=== PATIENT | female | born 1975 | race Caucasian/White ===

== ENCOUNTER 2016-11-01 17:06 | Emergency (ER) | payer OTHER ==
[~2016-11-01] VITALS: Wt 65.0 kg
[2016-11-01] MEDS ORDERED: morphine 2 MG INJ IV STA (20:12)
[2016-11-01] MEDS ORDERED: SOD CHLORIDE 0.9% 1,000 ML IV STA ×2 (20:12→22:58)
[2016-11-01] MEDS ORDERED: ONDANSETRON 4 MG INJ IV STA (20:12)
--- NOTE | 2016-11-01 20:29 | ERD ---
ER Documentation Chief Complaint Date/Time DATE: 11/01/16 TIME: 20:23 Chief Complaint VOMITING AND DIARRHEA AND MILD ABD PAIN SINCE LAST NIGHT. NO DYSURIA HPI 41-year-old female presents with chief complaint of vomiting and abdominal pain since last night. Associated symptoms include diarrhea, headache, fever, and chills. She states that the pain is in the suprapubic area right lower quadrant. Currently rates her pain a 7 out of 10 in severity. He took Pepto- Bismol last night without relief. She denies history of abdominal surgeries. ROS All systems reviewed and are negative except as per history of present illness. Medications Home Meds Active Scripts Acetaminophen* (Tylenol*) 325 Mg Tablet, 2 TAB PO Q6 Y for PAIN AND OR ELEVATED TEMP, #20 TAB Prov:Veronica Merritt PA-C 11/01/16 Ondansetron (Ondansetron Odt) 4 Mg Tab.rapdis, 4 MG PO Q6H Y for NAUSEA AND/OR VOMITING, #10 TAB Prov:Veronica Merritt PA-C 11/01/16 PMhx/Soc Medical and Surgical Hx: pt denies Medical Hx, pt denies Surgical Hx Hx Alcohol Use: No Hx Substance Use: No Hx Tobacco Use: No Smoking Status: Never smoker Physical Exam Vitals Vital Signs Date Time Temp Pulse Resp B/P Pulse Ox O2 Delivery O2 Flow Rate FiO2 11/02/16 00:08 96/67 11/01/16 23:01 98.4 86 18 96/55 99 Room Air 11/01/16 17:45 102.4 127 21 135/75 98 Physical Exam GENERAL: Non-toxic. No apparent signs of distress. HEENT: Atraumatic. Bilateral eyes are PERRL EOM intact. Normal conjunctiva, no injection. No eyelid or lower eyelid swelling noted. Ears: Normal tympanic membrane, no erythema or bulging. No ear canal swelling. No ear discharge. Nose : no nasal discharge. Throat: Oropharynx normal. Tongue pink and moist. No tonsillar swelling or tonsillar exudates. No lymphadenopathy. LUNGS: Clear to auscultation. No accessory muscle use. No wheezing, no crackles. No signs or symptoms of respiratory distress. HEART: Regular rate and rhythm. No murmurs, clicks, rubs or gallops. ABDOMEN: Soft and nondistended. Bowel sounds positive. No rebound or guarding. No gross peritoneal signs. Tenderness to palpation of the suprapubic and right lower quadrant. No gross masses. BACK: No midline tenderness, no costovertebral tenderness. NEURO: Normal mental status for age. Good muscle tone. SKIN: There is no apparent rash, petechiae, erythema or swelling. Good skin turgor. Result Diagram: 11/01/16203911/01/162039 Results 24 hrs Laboratory Tests Test 11/01/16 20:40 Alanine Aminotransferase (ALT/SGPT) 50IU/L Albumin 3.9g/dl Albumin/Globulin Ratio 1.21 Alkaline Phosphatase 64IU/L Anion Gap 17 Aspartate Amino Transf (AST/SGOT) 46IU/L Band Neutrophils % 1.0% Blood Urea Nitrogen 7mg/dl Calcium Level 8.4mg/dl Carbon Dioxide Level 24mmol/L Chloride Level 103mmol/L Creatinine 0.83mg/dl Direct Bilirubin 0.00mg/dl Globulin 3.20g/dl Glucose Level 105mg/dl Hematocrit 36.3% Hemoglobin 12.3g/dl Indirect Bilirubin 1.1mg/dl Lipase 25U/L Lymphocytes # 0.510^3/ul Lymphocytes % 6.0% Mean Corpuscular Hemoglobin 31.9pg Mean Corpuscular Hemoglobin Concent 33.9g/dl Mean Corpuscular Volume 94.3fl Mean Platelet Volume 9.3fl Monocytes # 0.510^3/ul Monocytes % 6.0% Neutrophils # 7.710^3/ul Neutrophils % 87.0% Platelet Count 54764^3/UL Potassium Level 3.8mmol/L Red Blood Count 3.8510^6/ul Red Cell Distribution Width 11.9% Sodium Level 140mmol/L Total Bilirubin 1.1mg/dl Total Protein 7.1g/dl Urine Bilirubin NEGATIVE Urine Clarity CLEAR Urine Color LT. YELLOW Urine Glucose NEGATIVE% Urine Hemoglobin NEGATIVE Urine Ketones NEGATIVE Urine Leukocyte Esterase NEGATIVE Urine Nitrite NEGATIVE Urine Specific [place] <=1.005 Urine Total Protein NEGATIVE Urine Urobilinogen 0.2 E.U./dL Urine pH 5.5 White Blood Count 8.910^3/ul Current Medications Medications (Trade) Dose Ordered Sig/Luis F Route PRN Reason Start Time Stop Time Status Last Admin Dose Admin Sodium Chloride (NS) 1,000 ml @ 1,000 mls/hr Q1H STAT IV 11/01/16 20:12 11/01/16 21:11 DC 11/01/16 20:42 Morphine Sulfate (morphine) 2 mg ONCE STAT IV 11/01/16 20:12 11/01/16 20:15 DC 11/01/16 20:41 Ondansetron HCl (Zofran Inj) 4 mg ONCE STAT IV 11/01/16 20:12 11/01/16 20:15 DC 11/01/16 20:41 Acetaminophen (Tylenol Tab) 650 mg ONCE ONCE PO 11/01/16 20:30 11/01/16 20:31 DC 11/01/16 20:41 IV Flush 10 ml 10 ml STK-MED ONCE .ROUTE 11/01/16 21:21 11/01/16 21:22 DC 11/01/16 21:36 Sodium Chloride (NS) 100 ml @ ud STK-MED ONCE .ROUTE 11/01/16 21:21 11/01/16 21:22 DC 11/01/16 21:36 Iohexol 150 ml 150 ml STK-MED ONCE .ROUTE 11/01/16 21:21 11/01/16 21:22 DC 11/01/16 21:36 Sodium Chloride (NS) 1,000 ml @ 1,000 mls/hr Q1H STAT IV 11/01/16 22:58 11/01/16 23:57 DC 11/01/16 23:01 Procedures/MDM Patient stated her complaint was vomiting and abdominal pain since last night. On exam she had tenderness to palpation of the suprapubic area and right lower quadrant. I explained that would be ordering an influenza swab as this could be possible cause of fever. We will be ordering basic lab work in addition to abdominal CT due to patient's right lower quadrant tenderness on exam and fever. CBC: No leukocytosis or anemia CMP: No electrolyte imbalances or signs severe dehydration, normal kidney function Lipase: Within normal limits POC : Negative UA: No leukocyte Estrace or nitrites, UTI unlikely Influenza a and B swab: Negative Abdominal CT with contrast: 1. Mild diffuse fatty infiltration of the liver. 2. Mildly dilated fluid-filled loops of small bowel with fluid within the proximal colon without obstruction. This is suggestive of an enteritis. 3. No CT evidence for appendicitis. 4. Minimal pelvic free fluid. I explained the results of the workup with the patient. Severe infection is unlikely due to no leukocytosis or neutrophilia. There are no severe electrolyte imbalances, patient received 2 L of IV fluids for hydration. CT of abdomen revealed no signs of appendicitis. It did show signs suggestive of enteritis. Patient's symptoms are likely due to viral gastroenteritis, duration of symptoms of only been for 2 days. Therefore I do not feel that antibiotic treatment is necessary at this time. Strict return precautions were discussed. At this time a low suspicion for appendicitis, pancreatitis, cholecystitis, choledocholithiasis, diverticulitis, ovarian torsion or cyst, bowel obstruction/ perforation, and sepsis. Patient was given morphine, 2 L of IV fluids, and Tylenol in the ER. She reported relief of her symptoms after treatment. She was mildly hypotensive at time of discharge, patient was given a second liter of IV fluids. After which her blood pressure increased slightly. She was in no acute distress and stated that she felt well. At this time she is stable for discharge and outpatient management. Advised to follow-up with PCP in 1-2 days. Departure Diagnosis: Primary Impression: Nausea, vomiting, and diarrhea Additional Impression: Gastroenteritis Condition: Good Veronica Merritt PA-C Nov 01, 2016 20:29
[2016-11-01] MEDS ORDERED: ACETAMINOPHEN 325 MG TAB PO ONE (20:30)
[2016-11-01 20:56] LABS: ADD SCAN DIFF NO
[2016-11-01 20:58] LABS: ABNORMAL IP MESSAGE 1; HEMATOCRIT 36.3 % (37.0-47.0); HEMOGLOBIN 12.3 g/dl (12.0-16.0); MEAN CORPUSCULAR HEMOGLOBIN 31.9 pg (29.0-33.0); MEAN CORPUSCULAR HGB CONC 33.9 g/dl (32.0-37.0); MEAN CORPUSCULAR VOLUME 94.3 fl (82.0-101.0); MEAN PLATELET VOLUME 9.3 fl (7.4-10.4); PLATELET COUNT 269 10^3/UL (140-415); RED BLOOD COUNT 3.85 10^6/ul (4.20-5.40); RED CELL DISTRIBUTION WIDTH 11.9 % (11.5-14.5); WHITE BLOOD COUNT 8.9 10^3/ul (4.8-10.8)
[2016-11-01 21:04] LABS: ADD UMIC NO; URINE BILIRUBIN (Dip) NEGATIVE (NEGATIVE); URINE BLOOD (Dip) NEGATIVE (NEGATIVE); URINE COLOR LT. YELLOW (YELLOW); URINE GLUCOSE (Dip) NEGATIVE (NEGATIVE); URINE KETONES (Dip) NEGATIVE (NEGATIVE); URINE LEUKOCYTE ESTERASE (Dip) NEGATIVE (NEGATIVE); URINE NITRITE (Dip) NEGATIVE (NEGATIVE); URINE TOTAL PROTEIN (Dip) NEGATIVE (NEGATIVE); URINE UROBILINOGEN (Dip) 0.2 E.U./dL (0.1-1.0)
[2016-11-01 21:11] LABS: ALBUMIN 3.9 g/dl (3.3-4.9); POTASSIUM 3.8 mmol/L (3.5-5.1)
[2016-11-01 21:13] LABS: BILIRUBIN,INDIRECT 1.1 mg/dl (0-1.1); BILIRUBIN,TOTAL 1.1 mg/dl (0.2-1.3); CREATININE 0.83 mg/dl (0.44-1.00)
[2016-11-01 21:14] LABS: ALBUMIN/GLOBULIN RATIO 1.21; CALCIUM 8.4 mg/dl (8.4-10.2); TOTAL PROTEIN 7.1 g/dl (6.1-8.1)
[2016-11-01] MEDS ORDERED: SOD CHLORIDE 0.9% 100 ML ONE (21:21)
[2016-11-01] MEDS ORDERED: IOHEXOL 300MG/ML 150 ML BTL ONE (21:21)
[2016-11-01 22:02] LABS: LYMPHOCYTES # 0.5 10^3/ul (0.8-2.9); MONOCYTE # 0.5 10^3/ul (0.3-0.9); NEUTROPHIL # 7.7 10^3/ul (1.6-7.5)
--- NOTE | 2016-11-01 22:40 | RADRPT ---
PROCEDURE: CT ABDOMEN/PELVIS WITH CONTRAST CLINICAL INDICATION: 41-year-old female with abdominal pain, diarrhea, vomiting and febrile. TECHNIQUE: The study was performed utilizing a GE [employer] Advanced [employer] VCT 64-slice CT scanner. Direct axia l sections were obtained through the abdomen and pelvis with the use of 90 cc of Omnipaque-300 nonio karely intravenous contrast material. Sagittal and coronal reformations were obtained. One or more of t he following dose reduction techniques were utilized: automated exposure control, adjustment of the mA and/or kV according to patient's size or use of iterative reconstruction technique. The images w ere reviewed on a PACS workstation. CTD/vol = 7.5 mGy; Total Exam DLP = 169.5 mGy-cm. COMPARISON: None. FINDINGS: There is trace bibasilar subsegmental atelectasis.. There is no evidence for significant pleural ef fusion. The liver has a normal size and contour. There is mild diffuse decreased density throughou t the liver suggestive of fatty infiltration but without focal areas of abnormal density or contrast enhancement. No intrahepatic nor extrahepatic biliary ductal dilatation is seen. The gallbladder de monstrates no wall thickening nor pericholecystic fluid. No biliary stones are evident. The pancreas is without areas of abnormal attenuation or contrast enhancement. This spleen is identified and latham s a normal size without abnormal density or contrast enhancement. The adrenal glands are unremarkabl e. The kidneys are functional bilaterally without abnormal density. No hydroureteronephrosis nor nep hroureterolithiasis is evident. The urinary bladder contains urine. There are mildly dilated fluid-f illed loops of distal small bowel with fluid identified within the proximal colon without evidence for transition point to suggest an obstruction. There is a small solitary diverticula within the as cending colon without surrounding inflammatory changes. The appendix is visualized and is without s ignificant edema or surrounding inflammatory changes. The uterus is unremarkable. There is minimal pelvic free fluid. There is no significant free fluid. The aortoiliac vessels are without aneurys mal dilatation. The osseous structures are intact. IMPRESSION: 1. Mild diffuse fatty infiltration of the liver. 2. Mildly dilated fluid-filled loops of small bowel with fluid within the proximal colon without ob struction. This is suggestive of an enteritis. 3. No CT evidence for appendicitis. 4. Minimal pelvic free fluid. .Jim Claros MD, MD Date Time Electronically viewed and signed by .Jim Claros MD, MD on 11/01/2016 22:40 ./
[2016-11-01] MEDS ORDERED: ONDA4TAB14 PO (22:50)
[2016-11-01] MEDS ORDERED: ACET325T33 PO (22:50)
[2016-11-01 23:01] VITALS: PULSE 86; RESP 18; TEMP 98.4
[2016-11-02 00:08] VITALS: BP 96/67
== END 2016-11-02 00:08 | disposition home or self-care (01) ==
LOC: FTE 17:06
DX: R11.2 Nausea with vomiting, unspecified (principal); K52.9 Noninfective gastroenteritis and colitis, unspecified
CPT/HCPCS: 36415; 74177; 80053; 81003; 83690; 85025; 87400; 96374; 96375; 99285; J2270; J2405; J7030; Q9967

== ENCOUNTER 2016-11-04 07:40 | Emergency (ER) | payer OTHER ==
[~2016-11-04] VITALS: Wt 61.0 kg
[~2016-11-04 07:40] MED LIST: ACET325T33 PO; ONDA4TAB14 PO
[2016-11-04 07:42] VITALS: Wt 61.0 kg
[2016-11-04] MEDS ORDERED: ACET325T33 PO (08:43)
[2016-11-04] MEDS ORDERED: DIPH1TAB PO (08:58)
--- NOTE | 2016-11-04 09:23 | ERD ---
DATE OF SERVICE: HISTORY OF PRESENT ILLNESS: The patient is a 41-year-old female complaining of diarrhea for the week. Patient states that she has no bloody stools. She has no abdominal pain, no vomiting, no f josiah. She took Imodium for her symptoms and no change in urination or bowel movement. MEDICAL HISTORY: Asthma. ALLERGIES TO MEDICATIONS: Denies. SURGICAL HISTORY: Denies. SOCIAL HISTORY: Denies. REVIEW OF SYSTEMS: A 12-point review of systems was done. Refer to HPI for positives, all other sy stems negative. PHYSICAL EXAMINATION VITAL SIGNS: Temperature 98, pulse 73, blood pressure 165/78, respiratory 18, O2 saturation 99% on room air. Pain intensity of 5/10. GENERAL: The patient is well-appearing, well-nourished, no acute distress. HEENT: Atraumatic. Conjunctivae are pink. Pupils equal, round, and reactive to light. There is no s cleral icterus. Tympanic membranes clear bilaterally. Oropharynx clear. No nystagmus or photophobia . CHEST: Clear to auscultation bilaterally. There are no rales, wheezes or rhonchi. HEART: Regular rate and rhythm. No murmurs, clicks, rubs or gallops. No S3 or S4. ABDOMEN: Soft, nontender and nondistended. Good bowel sounds. No rebound or guarding. No gross crissy tonitis. No gross organomegaly or masses. No Hardy sign or McBurney point tenderness. SKIN: There is no apparent rash or petechia. The skin is warm and dry. DIAGNOSIS: Diarrhea, likely viral. MEDICAL DECISION MAKING: Patient's vital signs are stable and I have low suspicion for dehydration. The patient has not had vomiting. Patient does not have acute abdominal findings or concern for acute abdomen on exam. I did not feel that further workup or evaluation is indicated at this time. DISCHARGE: The patient is discharged stable. Patient given prescription for Tylenol and told to fo llow up with primary care within 1 to 2 days for reevaluation. Patient was told to maintain bland d iet and patient was told if symptoms change or worsen, to return to the ER. All other questions ans wered at time of discharge. Discharge summary given at the time of departure. Patient understood a nd complied with plan. Dictated By: SOTO WALTERS for IRA COLLADO/NTS Conf#: [id number] DID#: [id number]
== END 2016-11-04 09:02 | disposition home or self-care (01) ==
LOC: FTE 07:40
DX: A08.4 Viral intestinal infection, unspecified (principal)
CPT/HCPCS: 99283